=== PATIENT | female | born 1970 | race Caucasian/White ===

== ENCOUNTER → 2016-07-25 | Outpatient (CLI) | payer OTHER ==
[~2016-07-25] MED LIST: ABILIFY10 MG PO; ALPRAZOLAM1 MG PO; ASPIRIN325; AVELOX400 MG PO; BUSPAR30 MG PO; CHLORPROMAZINE100 MG PO; CIPROFLOXACIN500 M1 PO; CLEOCIN HCL300 MG PO; CYMBALTA60 MG PO; FLEXERIL PO; LAMICTAL XR100 MG PO; LUNESTA3 MG PO; NAPROSYN500 MG PO; NORCO 5-325 TA1 EACH PO; NORFLEX100 MG PO; PRIMIDONE50 MG PO; PROPRANOLOL 20M20 M1 PO; REVIA 50 MG TAB50 MG PO; SUPRAX400 MG PO; TESSALON200 MG PO; TRAZODONE 150150 M1 PO; VENTOLIN HFA 1818 GM INH
== END ==
LOC: RAD 10:23
DX: Z12.31 Encounter for screening mammogram for malignant neoplasm of breast (principal)

== ENCOUNTER 2017-06-22 15:20 | Emergency (ER) | payer OTHER ==
[~2017-06-22] VITALS: Ht 165.1 cm; Wt 70.3 kg
[2017-06-22 18:17] VITALS: BP 130/78
[2017-12-02] MEDS ORDERED: TOLTERODINE TART2 M1 PO (19:35)
[2017-12-02] MEDS ORDERED: CLORAZEPATE D3.75 M2 PO (19:35)
[2017-12-02] MEDS ORDERED: GEODON60 MG PO (19:36)
[2017-12-02] MEDS ORDERED: BRINTELLIX20 MG PO (19:38)
[2017-12-02] MEDS ORDERED: KEPPRA1000 MG PO (19:39)
[2017-12-02] MEDS ORDERED: KEPPRA 500 MG500 M2 PO (19:39)
[2017-12-02] MEDS ORDERED: ZOFRAN ODT4 MG DISSOLVE (20:16)
[2017-12-02] MEDS ORDERED: ACETAMINOPHEN-1 EAC1 PO (20:16)
[2017-12-02] MEDS ORDERED: FLOMAX0.4 MG PO (20:16)
[2017-12-02] MEDS ORDERED: TORADOL 10 MG T10 MG PO (20:16)
== END 2017-06-22 18:34 | disposition home or self-care (01) ==
LOC: ER 15:20
DX: S00.93XA Contusion of unspecified part of head, initial encounter (principal); Z88.2 Allergy status to sulfonamides; W19.XXXA Unspecified fall, initial encounter; Y93.89 Activity, other specified; Y92.89 Other specified places as the place of occurrence of the external cause; Y99.8 Other external cause status

== ENCOUNTER 2017-12-28 14:36 | Inpatient (IN) | payer OTHER ==
[~2017-12-28] VITALS: Ht 172.7 cm; Wt 59.3 kg
[2017-12-28] VITALS (9 sets, daily range): BP systolic 102–138; BP diastolic 33–72
--- NOTE | ~2017-12-28 | EKG ---
[address] [address] ELECTROCARDIOGRAM REPORT Name: CARLOS MANUEL TERRELL Room #: 237-P ADM IN M.R.#: [id number] Admission: 12/28/17 Attend Phys: Juancarlos Santana MD Discharge: Date of : 72 Report #: [id number] THIS REPORT FOR: //name// [facility] ED Test Date: 2017-12-28 Test Time: 15:48:59 Pat Name: CARLOS MANUEL TERRELL Department: Room: 237 Gender: F [employer]: juan : 1970 Requested By: Sanket Bolanos Order Number: [id number] MD: Dayday Donaldson Measurements Intervals [place] Rate: 67 P: 34 OK: 56 QRS: 39 QRSD: 107 T: 46 QT: 461 QTc: 487 Interpretive Statements Sinus rhythm Left ventricular hypertrophy Borderline prolonged QT interval Artifact in lead(s) I,III,aVL Compared to ECG 12/02/2017 18:29:43 Electronically Signed On 12-29-2017 17:40:34 CDT by Dayday Donaldson [email or web address] <ELECTRONICALLY SIGNED> By: Dayday Donaldson MD 12/29/17 1740 1548 1548 Dayday Donaldson MD /EPI
--- NOTE | ~2017-12-28 | EEG ---
[facility] [place] [address] ELECTROENCEPHALOGRAM Name: CARLOS MANUEL TERRELL Room #: 224-P [facility] IN M.R.#: [id number] Admission: 12/28/17 Attend Phys: Juancarlos Santana MD Discharge: 12/31/17 Date of : 72 Report #: [id number] THIS REPORT FOR: //name// CC: Juancarlos Bloom DATE OF SERVICE: 12/29/2017 The patient's EEG was done to evaluate the patient for the possibility of seizure. The patient's EEG was done by placing the electrode by standard 10-20 system of electrode placement. Both referential and sequential montages were used for recording. Background activity in the right side is about 10 Hz and 30 microvolt. Amplitude is asymmetrical and to some extent, frequency is asymmetrical. It is suppressed on the left side. The patient went to sleep and associated with bilateral slowing and vertex sharp waves. Photic stimulation was unremarkable. Throughout the record, no active epileptiform activity was noticed. IMPRESSION: This is an abnormal electroencephalogram because the activity is suppressed and lower amplitude on the left side. Normally also, amplitude is lower on the left side, but this appears to be outside the range and in this circumstance, a left hemispheric lesion should be excluded. No active epileptiform activity was noticed arising from the left hemisphere or anywhere else. Electroencephalogram is slow to some extent as a nonspecific finding, which can occur with drowsiness, effect of psychotropic medication, dementia, etc. Clinical correlation is recommended. <ELECTRONICALLY SIGNED> By: Seb Marsh MD 01/06/18 1700 1719 [id number] Seb Marsh MD /nt
[~2017-12-28 14:36] MED LIST changes: +ACETAMINOPHEN-1 EAC1 PO; +BRINTELLIX20 MG PO; +CLORAZEPATE D3.75 M2 PO; +FLOMAX0.4 MG PO; +GEODON60 MG PO; +KEPPRA 500 MG500 M2 PO; +KEPPRA1000 MG PO; +TOLTERODINE TART2 M1 PO; +TORADOL 10 MG T10 MG PO; +ZOFRAN ODT4 MG DISSOLVE
[2017-12-28] MEDS ORDERED: DESYREL300 MG PO (15:03)
[2017-12-28 15:12] LABS: ABSOLUTE NEUTROPHILS 2.7 thou/uL (1.4-8.2); BASOPHILS 0.7 % (0.0-2.0); EOSINOPHILS 1.6 % (0.0-3.0); HEMATOCRIT 31.8 % (37.0-47.0); HEMOGLOBIN 10.8 gm/dL (12.0-15.0); LYMPHOCYTES 41.4 % (24.0-44.0); MCH 31.1 pg (26.0-34.0); MCHC 34.1 g/dL (28.0-37.0); MCV 91.4 fL (80.0-100.0); MONOCYTES 7.3 % (1.0-8.0); PLATELET COUNT 266 thou/uL (150-400); RBC 3.48 mil/uL (4.20-5.00); RDW 17.9 % (10.5-14.5); WBC 5.4 thou/uL (4.0-11.0)
[2017-12-28 15:18] LABS: CALCIUM 9.1 mg/dL (8.5-10.1); CREATININE 0.8 mg/dL (0.6-1.0); POTASSIUM 3.3 mmol/L (3.5-5.1)
[2017-12-28 15:24] LABS: ALBUMIN 3.2 g/dL (3.4-5.0); TOTAL BILIRUBIN 0.3 mg/dL (<0.1-1.0); TOTAL PROTEIN 6.2 g/dL (6.4-8.2)
[2017-12-29] VITALS (13 sets, daily range): BP systolic 100–138; BP diastolic 48–77
[2017-12-29 05:40] LABS: HEMATOCRIT 29.3 % (37.0-47.0); HEMOGLOBIN 9.8 gm/dL (12.0-15.0); MCH 30.7 pg (26.0-34.0); MCHC 33.6 g/dL (28.0-37.0); MCV 91.5 fL (80.0-100.0); RBC 3.2 mil/uL (4.20-5.00); RDW 18.4 % (10.5-14.5); WBC 3.9 thou/uL (4.0-11.0)
[2017-12-29 05:42] LABS: CALCIUM 8.6 mg/dL (8.5-10.1); CREATININE 0.6 mg/dL (0.6-1.0); MAGNESIUM 2.2 mg/dL (1.8-2.4); POTASSIUM 3.5 mmol/L (3.5-5.1)
[2017-12-29 06:04] LABS: URINE BILIRUBIN NEGATIVE (Negative); URINE BLOOD NEGATIVE (Negative); URINE CLARITY CLEAR; URINE COLOR YELLOW; URINE GLUCOSE-RANDOM* NEGATIVE (Negative); URINE KETONES NEGATIVE (Negative); URINE LEUKOCYTES-REFLEX NEGATIVE (Negative); URINE NITRITE-REFLEX NEGATIVE (Negative); URINE PROTEIN (DIPSTICK) NEGATIVE (Negative); URINE SPECIFIC GRAVITY <= 1.005 (1.005-1.035); URINE UROBILINOGEN 0.2 E.U./dl (0.2-1.0)
[2017-12-29 06:12] LABS: AMP/METHAMP Negative (Negative); BARBITURATES POSITIVE (Negative); BENZODIAZEPINES POSITIVE (Negative); COCAINE Negative (Negative); METHADONE Negative (Negative); OPIATES POSITIVE (Negative); PCP Negative (Negative)
[2017-12-30 07:50] VITALS: BP 128/64
[2017-12-30 07:57] LABS: HEMOGLOBIN 9.6 gm/dL (12.0-15.0); MCHC 34.3 g/dL (28.0-37.0); MCV 90.2 fL (80.0-100.0); RBC 3.1 mil/uL (4.20-5.00); RDW 18.1 % (10.5-14.5); WBC 3.9 thou/uL (4.0-11.0)
[2017-12-30 08:05] LABS: CALCIUM 8.4 mg/dL (8.5-10.1); CREATININE 0.6 mg/dL (0.6-1.0); MAGNESIUM 2.4 mg/dL (1.8-2.4); POTASSIUM 4.2 mmol/L (3.5-5.1)
[2017-12-31 02:53] VITALS: BP 99/46
[2017-12-31 08:17] LABS: HEMATOCRIT 29.8 % (37.0-47.0); MCH 30.5 pg (26.0-34.0); MCHC 33.7 g/dL (28.0-37.0); MCV 90.6 fL (80.0-100.0); RBC 3.29 mil/uL (4.20-5.00); RDW 17.5 % (10.5-14.5); WBC 4.5 thou/uL (4.0-11.0)
[2017-12-31 08:32] LABS: CALCIUM 8.8 mg/dL (8.5-10.1); CREATININE 0.7 mg/dL (0.6-1.0); MAGNESIUM 2.4 mg/dL (1.8-2.4); POTASSIUM 4.4 mmol/L (3.5-5.1)
[2017-12-31 08:38] VITALS: BP 118/72
[2017-12-31 11:11] LABS: TSH 1.819 uIU/mL (0.358-3.740)
[2017-12-31] MEDS ORDERED: SINEMET 25-1001 EAC1 PO (13:24)
[2017-12-31] MEDS ORDERED: VITAMIN B122500 MC1 PO (13:35)
[2017-12-31 15:03] VITALS: BP 118/72
[2017-12-31 15:20] VITALS: BP 118/72
== END 2017-12-31 18:37 | disposition home health service (06) | DRG 101 ==
LOC: ER 14:36 → EROBS 16:28 → ICU 16:28 → EROBS 18:03 → ICU 18:56 → SICU 12-29 19:46 → ENTRNSPT 12-31 17:34 → SICU 12-31 18:37
PROVIDERS: Internal Medicine; Physician Assistant; Psychiatry & Neurology Neuromuscular Medicine
DX: R56.9 Unspecified convulsions (principal); I69.351 Hemiplegia and hemiparesis following cerebral infarction affecting right dominant side; F32.9 Major depressive disorder, single episode, unspecified; E16.2 Hypoglycemia, unspecified; F17.210 Nicotine dependence, cigarettes, uncomplicated; G20 Parkinson's disease; Z86.14 Personal history of Methicillin resistant Staphylococcus aureus infection; Z88.2 Allergy status to sulfonamides; Z87.820 Personal history of traumatic brain injury; Z79.899 Other long term (current) drug therapy; I69.320 Aphasia following cerebral infarction
CPT/HCPCS: 10203; 15002

== ENCOUNTER 2018-01-01 14:42 | Emergency (ER) | payer OTHER ==
[~2018-01-01] VITALS: Ht 165.1 cm; Wt 54.4 kg
[~2018-01-01 14:42] MED LIST changes: +DESYREL300 MG PO; +SINEMET 25-1001 EAC1 PO; +VITAMIN B122500 MC1 PO
[2018-01-01 15:16] LABS: ABSOLUTE NEUTROPHILS 3.2 thou/uL (1.4-8.2); BASOPHILS 0.5 % (0.0-2.0); EOSINOPHILS 1.3 % (0.0-3.0); HEMATOCRIT 33.2 % (37.0-47.0); HEMOGLOBIN 11.4 gm/dL (12.0-15.0); LYMPHOCYTES 31.6 % (24.0-44.0); MCH 30.5 pg (26.0-34.0); MCHC 34.2 g/dL (28.0-37.0); MONOCYTES 7.6 % (1.0-8.0); PLATELET COUNT 262 thou/uL (150-400); RBC 3.73 mil/uL (4.20-5.00); RDW 17.5 % (10.5-14.5); WBC 5.4 thou/uL (4.0-11.0)
[2018-01-01 15:24] LABS: CALCIUM 9.3 mg/dL (8.5-10.1); CREATININE 0.8 mg/dL (0.6-1.0); POTASSIUM 4.2 mmol/L (3.5-5.1)
[2018-01-01 16:05] LABS: URINE BILIRUBIN NEGATIVE (Negative); URINE BLOOD NEGATIVE (Negative); URINE CLARITY CLEAR; URINE COLOR YELLOW; URINE GLUCOSE-RANDOM* NEGATIVE (Negative); URINE KETONES NEGATIVE (Negative); URINE LEUKOCYTES NEGATIVE (Negative); URINE NITRITE NEGATIVE (Negative); URINE PROTEIN (DIPSTICK) NEGATIVE (Negative); URINE SPECIFIC GRAVITY 1.015 (1.005-1.035)
[2018-01-01 17:46] VITALS: BP 125/62
== END 2018-01-01 17:47 | disposition home or self-care (01) ==
LOC: ER 14:42
PROVIDERS: Physician Assistant
DX: R56.9 Unspecified convulsions (principal); F17.210 Nicotine dependence, cigarettes, uncomplicated; F32.9 Major depressive disorder, single episode, unspecified; Z88.2 Allergy status to sulfonamides; Z91.048 Other nonmedicinal substance allergy status; Z86.73 Personal history of transient ischemic attack (TIA), and cerebral infarction without residual deficits